=== PATIENT | male | born 1990 | race Caucasian/White ===

== ENCOUNTER 2018-04-17 20:29 | Emergency (ER) | payer SELFPAY ==
[~2018-04-17] VITALS: Ht 165.1 cm; Wt 95.5 kg
[2018-04-17 20:49] VITALS: Ht 165.1 cm; Wt 95.5 kg
[2018-04-17] MEDS ORDERED: NORCO 10-325 TA1 TAB PO (23:32)
[2018-04-17] MEDS ORDERED: CLEOCIN HCL300 MG PO (23:32)
[2018-04-18 00:31] VITALS: BP 132/75
== END 2018-04-18 00:32 | disposition home or self-care (01) ==
LOC: D.ER 20:29
DX: S61.311A Laceration without foreign body of left index finger with damage to nail, initial encounter (principal); W29.8XXA Contact with other powered hand tools and household machinery, initial encounter; Y93.89 Activity, other specified; Y92.019 Unspecified place in single-family (private) house as the place of occurrence of the external cause; S60.413A Abrasion of left middle finger, initial encounter